=== PATIENT | female | born 1990 | race African-American/Black ===

== ENCOUNTER 2018-01-03 09:06 | Emergency (ER) | payer MEDICAID ==
[~2018-01-03] VITALS: Ht 165.1 cm; Wt 106.5 kg
[2018-01-03 09:09] VITALS: BP 123/58; PULSE 125; RESP 16; TEMP 100.4; O2SAT 99
[2018-01-03] MEDS ORDERED: ACETAMINOPHEN 325 MG TAB PO ONE (09:30)
--- NOTE | 2018-01-03 09:33 | PD ---
HPI Chief Complaint: Cold / Flu Symptoms Time Seen by Provider: 09:18 Travel History International Travel<30 days: No Contact w/Intl Traveler<30days: No Traveled to known affect area: No History of Present Illness HPI 27 year old female presents to the emergency department for evaluation of cold/ flu like symptoms that started yesterday. She reports body aches, chills, cough , congestion, sore throat, headache. Patient is noted to have a temperature of 100.4 in triage. She has not taken anything for fever. Patient denies any vomiting, diarrhea. Patient reports no chronic medical problems and takes no prescribed medications. She denies . Patient also believes she may have UTI. She reports dysuria, frequency, urgency for approximately a week. No exacerbating or alleviating factors. Moderate severity. [facility] Social History Alcohol Use: Yes (occasionally) Tobacco Use: No Substance Use: No Allergies-Medications (Allergen,Severity, Reaction): Coded Allergies: No Known Allergies (Unverified , 01/03/18) Reported Meds & Prescriptions Reported Meds & Active Scripts Active No Active Prescriptions or Reported Medications Review of Systems Except as stated in HPI: all other systems reviewed are Neg Physical Exam Narrative GENERAL: Well-nourished, well-developed female patient, ambulatory. Afebrile. SKIN: Focused skin assessment warm/dry. HEAD: Normocephalic. Atraumatic. ENT: Mucosa pink and moist. No erythema or exudates. No uvular edema. No uvular , palatal, or tonsillar deviation. Airway patent. Nasal turbinates appear normal without nasal blood, purulent drainage or septal hematoma. Bilateral tympanic membranes are clear without erythema or perforation. EYES: No scleral icterus. No injection or drainage. NECK: Supple, trachea midline. No JVD or lymphadenopathy. CARDIOVASCULAR: Regular rate and rhythm without murmurs, gallops, or rubs. RESPIRATORY: Breath sounds equal bilaterally. No accessory muscle use. Lung sounds are clear to auscultation. GASTROINTESTINAL: Abdomen soft, non-tender, nondistended. MUSCULOSKELETAL: No cyanosis, or edema. BACK: Nontender without obvious deformity. No CVA tenderness. Data Data Last Documented VS Vital Signs Date Time Temp Pulse Resp B/P (MAP) Pulse Ox O2 Delivery O2 Flow Rate FiO2 01/03/18 09:09 100.4 125 16 123/58 (79) 99 Orders Orders Acetaminophen (Tylenol) (01/03/18 09:30) Group A Rapid Strep Screen (01/03/18 09:24) Influenzae A/B Antigen (01/03/18 09:24) Urinalysis - C+S If Indicated (01/03/18 09:24) Ed Urine Pregnancytest Poc (01/03/18 09:24) Urine Culture (01/03/18 09:30) Strep Culture (Group A) (01/03/18 09:30) Nitrofurantoin Monohyd Macrocr (Macrobid (01/03/18 10:15) Labs Laboratory Tests Test 01/03/18 09:30 Urine Color YELLOW Urine Turbidity HAZY Urine pH 6.5 Urine Specific [place] 1.013 Urine Protein 30 mg/dL Urine Glucose (UA) NEG mg/dL Urine Ketones NEG mg/dL Urine Occult Blood SMALL Urine Nitrite NEG Urine Bilirubin NEG Urine Urobilinogen LESS THAN 2.0 MG/DL Urine Leukocyte Esterase LARGE Urine RBC 8 /hpf Urine WBC 158 /hpf Urine WBC Clumps RARE Urine Squamous Epithelial Cells 3 /hpf Urine Transitional Epithelial Cells <1 /hpf Urine Bacteria FEW /hpf Urine Hyaline Casts 1 /lpf Urine Mucus FEW /lpf Microscopic Urinalysis Comment CULTURE INDICATED MDM Medical Decision Making Medical Screen Exam Complete: Yes Emergency Medical Condition: Yes Medical Record Reviewed: Yes Differential Diagnosis influenza vs. strep pharyngitis vs. UTI vs. pyelonephritis Narrative Course 27 year old female presents to the emergency department for evaluation of flu- like symptoms that started yesterday morning. She also reports urinary symptoms for a week. Patient is given Tylenol 650 mg PO. Strep swab, influenza swab, UA, UPT are ordered and pending. Strep is [-]. Influenza is [-]. UA [-]. UPT [-]. Diagnosis Primary Impression: Viral upper respiratory infection Additional Impression: Urinary tract infection Qualified Codes: N30.01 - Acute cystitis with hematuria Referrals: Primary Care Physician call for appointment Patient Instructions: General Instructions, Upper Respiratory Infection (ED), Urinary Tract Infection in Women (ED) Departure Forms: Tests/Procedures, Work Release Enter return to work date: Jan 05, 2018 Additional Instructions: Rest. Drink plenty of fluids. Tylenol every 4 hours as needed for fever/bodyaches. Ibuprofen every 6-8 hours as needed for fever/bodyaches. Take Macrobid as directed until gone for urinary tract infection. Take Pyridium as directed as needed for dysuria. Follow-up with your primary care physician. Return to the emergency department for any acute worsening of symptoms. Med/Other Pt SpecificInfo: Prescription(s) given Scripts Phenazopyridine (Pyridium) 100 Mg Tab 100 MG PO Q8H Y for DYSURIA, #10 TAB 0 Refills Prov: Kady Crow 01/03/18 Nitrofurantoin Monohydrate Macrocrystals (Macrobid) 100 Mg Capsule 100 MG PO BID for Infection for 7 Days, #14 CAP 0 Refills Prov: Kady Crow 01/03/18 Disposition: 01 DISCHARGE HOME Condition: Stable Kady Crow Jan 03, 2018 09:33
[2018-01-03 09:47] LABS: BACTERIA, URINE FEW /hpf; BILIRUBIN, URINE NEG (NEG); BLOOD, URINE SMALL (NEG); GLUCOSE,URINE NEG (NEG); HYALINE CAST, URINE 1 /lpf (RARE); KETONE, URINE NEG (NEG); MUCUS URINE FEW /lpf (OCC); NITRITE,URINE NEG (NEG); PH, URINE 6.5 (5.0-8.5); SQUAMOUS EPITHELIAL CELL URINE 3 /hpf (0-5); TRANSITIONAL EPI CELLS, URINE <1 /hpf; URINE COLOR YELLOW (YELLW/STRAW); URINE LEUKOCYTE ESTERASE LARGE (NEG); WHITE BLOOD CELL CLUMPS RARE
[2018-01-03] MEDS ORDERED: MACR100C2 PO (10:11)
[2018-01-03] MEDS ORDERED: PHEN0.4T PO (10:12)
[2018-01-03] MEDS ORDERED: NITROFURANTOIN MONOHYD MACROCR 100 MG CAP PO ONE (10:15)
== END 2018-01-03 16:00 | disposition home or self-care (01) ==
LOC: NEPD 09:06
DX: J06.9 Acute upper respiratory infection, unspecified (principal); N39.0 Urinary tract infection, site not specified; B96.20 Unspecified Escherichia coli [E. coli] as the cause of diseases classified elsewhere
CPT/HCPCS: 81001; 84703; 87077; 87081; 87086; 87186; 87804; 87880; 99283